=== PATIENT | female | born 1990 | race Caucasian/White ===

== ENCOUNTER 2025-01-07 05:24 | Inpatient (IN) | payer BC ==
[2025-01-07] MEDS ORDERED: Calcium Gluc 4.6 MEQ/10 ML (100 MG/ML) SLOW IVP PRN (06:45)
[2025-01-07] MEDS ORDERED: Carboprost 250 MCG/ML AMP IM PRN (06:45)
[2025-01-07] MEDS ORDERED: Lidocaine 1% (PF) 30 ML VIAL SC PRN (06:45)
[2025-01-07] MEDS ORDERED: Ibuprofen 800 MG TAB PO PRN (06:45)
[2025-01-07] MEDS ORDERED: Acetaminophen 500 MG TAB PO PRN (06:45)
[2025-01-07] MEDS ORDERED: Tranexamic Acid 1,000 MG/10 ML VIAL IVP PRN (06:45)
[2025-01-07] MEDS ORDERED: Ondansetron PF 4 MG/2 ML Vial IVP PRN ×2 (06:45→14:36)
[2025-01-07] MEDS ORDERED: Diphenoxylate HCl/Atropine Tablet PO PRN ×2 (06:45)
[2025-01-07] MEDS ORDERED: HYDROcodone/Acetaminophen 5/325 mg Tablet PO PRN ×2 (06:45)
[2025-01-07] MEDS ORDERED: hydrALAZINE 20 MG/ML VIAL SLOW IVP PRN ×3 (06:45)
[2025-01-07 06:54] LABS: Hematocrit 40.3 % (34.9-44.5); Hemoglobin 13.8 g/dL (12.0-15.5); Mean Corpuscular Hemoglobin 30.3 pg (27.0-33.0); Mean Corpuscular Volume 88.4 fL (81.6-98.3); Platelet Count 245 10x3/uL (150-450); Red Blood Cell (RBC) Count 4.56 10x6/uL (3.90-5.03); White Blood Cell (WBC) Count 14.04 10x3/uL (3.5-10.5)
[2025-01-07 06:56] VITALS: BMI 32.5
[2025-01-07 07:29] LABS: ALT (SGPT) 18 U/L (Less than 34); AST (SGOT) 22 U/L (11-34); Albumin 2.9 g/dL (3.1-4.5); Alkaline Phosphatase 116 U/L (40-110); Anion Gap 16 mmol/L (10-20); BUN (Urea Nitrogen) 9 mg/dL (7.0-18.7); Bilirubin, Total 0.3 mg/dL (0.3-1.2); Calc. Creatinine Clearance 200 mL/min (70-130); Calcium 8.5 mg/dL (7.8-10.44); Carbon Dioxide 19 mmol/L (22-29); Chloride 109 mmol/L (98-107); Globulin 3.1 g/dL (2.4-3.5); Glucose 98 mg/dL (70-105); Potassium 3.6 mmol/L (3.5-5.1); Sodium 140 mmol/L (136-145)
[2025-01-07 07:34] LABS: Hep B Surf Ag - L&D Non-Reactive S/CO (NonReactive)
[2025-01-07 07:36] LABS: Syphilis Antibody Index 0.06 S/CO (<1.00 Non-Reactive)
[2025-01-07] MEDS: fentaNYL/Ropivacaine Epidural 100 ML ONE (13:20)
[2025-01-07] MEDS ORDERED: Acetaminophen 325 MG TAB PO PRN (14:36)
[2025-01-07] MEDS ORDERED: Communication Order-Pharmacy FS SCH (14:45)
[2025-01-07] MEDS: fentaNYL 2 mcg/Ropivacaine 0.2% Epidural 100 ML CADD EPIDURAL SCH (21:36)
[2025-01-07] MEDS: diphenhydrAMINE 50 MG/ML VIAL IVP PRN (23:17)
[2025-01-07] MEDS: Oxytocin 30 units/NS 500 ML 500 ML IV SCH (23:53)
[2025-01-08] MEDS ORDERED: Ondansetron PF 4 MG/2 ML Vial IVP PRN ×3 (02:17→07:49)
[2025-01-08] MEDS ORDERED: Meperidine HCl/PF 25 MG (1 mL) VIAL SLOW IVP PRN (02:17)
[2025-01-08] MEDS ORDERED: HYDROmorphone 0.5 MG/0.5 ML SYRINGE SLOW IVP PRN (02:17)
[2025-01-08] MEDS ORDERED: diphenhydrAMINE 50 MG/ML VIAL IVP PRN ×2 (02:17→07:49)
[2025-01-08] MEDS ORDERED: Communication Order-Pharmacy FS SCH ×3 (02:30→08:00)
[2025-01-08] MEDS ORDERED: Ketorolac Tromethamine 30 MG (1 mL) VIAL IVP SCH (04:00)
[2025-01-08] MEDS: Oxytocin 30 units/NS 500 ML 500 ML IV SCH (04:54)
[2025-01-08] MEDS: Ondansetron PF 4 MG/2 ML Vial ONE (05:07)
[2025-01-08] MEDS: Lidocaine 2% MPF 10 ML AMP (For Epidural Use) ONE ×2 (05:07→05:08)
[2025-01-08] MEDS: Tranexamic Acid 1,000 MG/10 ML VIAL ONE (05:07)
[2025-01-08] MEDS: Oxytocin 10 UNITS/ML VIAL ONE (05:07)
[2025-01-08] MEDS: Dexamethasone 10 MG/ML VIAL ONE (05:08)
[2025-01-08] MEDS: CEFAZOLIN 2 GM VIAL ONE (05:09)
[2025-01-08] MEDS: Azithromycin 500 MG VIAL ONE (05:09)
[2025-01-08] MEDS: Ketorolac Tromethamine 30 MG (1 mL) VIAL IVP PRN (05:32)
[2025-01-08] MEDS ORDERED: Bisacodyl 10 MG SUPP PR PRN (06:14)
[2025-01-08] MEDS ORDERED: Simethicone Chewable 80 MG TAB PO PRN (06:14)
[2025-01-08] MEDS ORDERED: diphenhydrAMINE 25 MG CAP PO PRN (06:14)
[2025-01-08] MEDS ORDERED: Acetaminophen 325 MG TAB PO PRN (06:14)
[2025-01-08] MEDS ORDERED: hydrALAZINE 20 MG/ML VIAL SLOW IVP PRN (06:14)
[2025-01-08] MEDS: cefTRIAXone\\ROCEPHIN 1 GM in Sodium Chloride 0.9% 100 ML IVPB SCH ×2 (08:02→10:29)
[2025-01-08] MEDS ORDERED: HYDROcodone/Acetaminophen 5/325 mg Tablet PO PRN ×3 (08:23→14:30)
[2025-01-08] MEDS: NIFEdipine XL 30 MG ER.TAB PO SCH (09:05)
[2025-01-08] MEDS: Clindamycin/D5W 900 MG in Premix 1 BAG IVPB SCH (09:05)
[2025-01-08] MEDS: Erythromycin Base 0.5% Oint 1 GM TUBE ONE (10:23)
[2025-01-08] MEDS ORDERED: Ibuprofen 800 MG TAB PO SCH (11:30)
[2025-01-08] MEDS: Ketorolac Tromethamine 30 MG (1 mL) VIAL IVP SCH (12:04)
[2025-01-09 06:32] LABS: Hematocrit 36.0 % (34.9-44.5); Hemoglobin 12.4 g/dL (12.0-15.5); Mean Corpuscular Hemoglobin 30.8 pg (27.0-33.0); Mean Corpuscular Volume 89.3 fL (81.6-98.3); Platelet Count 165 10x3/uL (150-450); Red Blood Cell (RBC) Count 4.03 10x6/uL (3.90-5.03); White Blood Cell (WBC) Count 20.35 10x3/uL (3.5-10.5)
[2025-01-09] MEDS: HYDROcodone/Acetaminophen 5/325 mg Tablet PO PRN ×2 (08:44→16:57)
[2025-01-09] MEDS: Ibuprofen 800 MG TAB PO SCH (15:43)
[2025-01-10] MEDS ORDERED: Ibuprofen 800 MG TAB PO PRN (06:02)
[2025-01-11] MEDS: Boostrix 0.5 ML (Tdap) VIAL (>/=7 yrs of age) IM ONE (08:01)
[2025-01-11 09:05] VITALS: BP 140/87; TEMP 98
== END 2025-01-11 13:55 | disposition home or self-care (01) | DRG 786 ==
LOC: CSHLD 05:24 → CSHPP 01-08 05:46
PROVIDERS: ADMIT Obstetrics & Gynecology; ATTEND Obstetrics & Gynecology
PROC: 4A1HXCZ Monitoring of Products of Conception, Cardiac Rate, External Approach (ICD-10-PCS; 2025-01-07)
PROC: 10H07YZ Insertion of Other Device into Products of Conception, Via Natural or Artificial Opening (ICD-10-PCS; 2025-01-07)
PROC: 10D00Z1 Extraction of Products of Conception, Low, Open Approach (ICD-10-PCS; principal; 2025-01-08)
DX: O13.3 Gestational [pregnancy-induced] hypertension without significant proteinuria, third trimester (principal); O41.1230 Chorioamnionitis, third trimester, not applicable or unspecified; O99.62 Diseases of the digestive system complicating childbirth; O99.344 Other mental disorders complicating childbirth; K21.9 Gastro-esophageal reflux disease without esophagitis; O64.0XX0 Obstructed labor due to incomplete rotation of fetal head, not applicable or unspecified; F41.8 Other specified anxiety disorders; Z3A.37 37 weeks gestation of pregnancy; Z79.899 Other long term (current) drug therapy; Z90.722 Acquired absence of ovaries, bilateral; Z37.0 Single live birth
CPT/HCPCS: 36415; 51702; 80053; 85027; 86780; 86850; 86900; 86901; 87340; J0696; J1100; J1200; J1885; J2274; J2590; J3490